=== PATIENT | female | born 1990 | race Caucasian/White ===

== ENCOUNTER 2017-07-05 08:00 | Outpatient (CLI) | payer BC, MEDICAID ==
[2017-07-05 18:40] LABS: BASOPHILS # (AUTO) 0.1 10^3/uL (0.0-0.1); BASOPHILS % (AUTO) 1.1 %; EOSINOPHILS # (AUTO) 0.1 10^3/uL (0.0-0.7); HGB - HEMOGLOBIN 14.3 g/dL (12.0-16.0); LYMPHOCYTES # (AUTO) 1.8 10^3/uL (1.5-3.5); LYMPHOCYTES % (AUTO) 36.6 %; MEAN CORPUSCULAR HEMOGLOBIN 28.5 pg (27.0-31.0); MEAN CORPUSCULAR HGB CONC 33.6 g/dL (32.0-36.0); MEAN CORPUSCULAR VOLUME 84.9 fL (81.0-99.0); MONOCYTES # (AUTO) 0.4 10^3/uL (0.0-1.0); MONOCYTES % (AUTO) 7.6 %; NEUTROPHILS # (AUTO) 2.6 10^3/uL (1.5-6.6); NEUTROPHILS % (AUTO) 52.7 %; PLT - PLATELET COUNT 241 10^3/uL (130-450); RED BLOOD COUNT 5.01 10^6/uL (4.20-5.40); WHITE BLOOD COUNT 4.9 x10^3/uL (4.8-10.8)
[2017-07-05 18:48] LABS: ALBUMIN 4.5 g/dL (3.2-5.5); ALBUMIN/GLOBULIN RATIO 1.4 (1.0-2.2); ALKALINE PHOSPHATASE 47 IU/L (42-121); ALT ALANINE AMINOTRANSFERASE 14 IU/L (10-60); AMYLASE 58 U/L (28-100); AST ASPARTATE AMINOTRANSFERASE 16 IU/L (10-42); BILIRUBIN,TOTAL 1.4 mg/dL (0.2-1.0); BUN - BLOOD UREA NITROGEN 8 mg/dL (6-20); CALCIUM 9.4 mg/dL (8.5-10.3); CARBON DIOXIDE - CO2 24 mmol/L (21-32); CHLORIDE 102 mmol/L (101-111); CREATININE 0.7 mg/dL (0.4-1.0); GFR - MDRD 100 (>89); GLUCOSE 84 mg/dL (70-100); LIPASE 16 U/L (22-51); SODIUM 138 mmol/L (135-145); TOTAL PROTEIN 7.7 g/dL (6.7-8.2)
== END 2017-07-05 08:01 | disposition home or self-care (01) ==
LOC: LAB.N 08:00
PROVIDERS: ATTEND Family Medicine
DX: R10.9 Unspecified abdominal pain (principal); K58.9 Irritable bowel syndrome, unspecified
CPT/HCPCS: 36415; 80053; 82150; 83690; 84443; 85025; 85651

== ENCOUNTER 2018-08-24 01:53 | Outpatient (CLI) | payer MEDICAID | END 2018-08-24 01:54 | disposition critical access hospital (66) | LOC: EMS 01:53 | PROVIDERS: ATTEND Surgery | DX: R55 Syncope and collapse (principal); S09.90XA Unspecified injury of head, initial encounter | CPT/HCPCS: A0425; A0429; A0999 ==

== ENCOUNTER 2018-08-24 02:23 | Emergency (ER) | payer MEDICAID ==
--- NOTE | 2018-08-24 02:59 | ED Physician Documentation ---
PD HPI SYNCOPE - Stated complaint Stated Complaint: SYNCOPE - Chief complaint Chief Complaint: Neuro - History obtained from History obtained from: Patient - History of Present Illness Witnessed: Witnessed Timing - onset: How many hours ago (approximately 1 hour [employer]) Duration: Minutes Preceding symptoms: Nausea / vomiting, Light headed, Generalized weakness Associated symptoms: Vision changes, Diaphoresis, None Contributing factors: Just stood up Injury occurred: None Pain level now: 0 Similar symptoms before: Has not had sx before Recently seen: Not recently seen - Additional information Additional information: felt nausea while lying in bed tonight, got up to use BR. while on toilet, became lightheaded, vomited, vision dimmed, diaphoresis, and syncope. recovered but then had second episode syncope. she presents c/o mild generalized weakness, nausea Review of Systems Constitutional: reports: Sweats. denies: Fever, Chills Cardiac: reports: Reviewed and negative Respiratory: reports: Reviewed and negative GI: reports: Nausea, Vomiting. denies: Abdominal Pain : denies: Dysuria, Frequency, Incontinent PD PAST MEDICAL HISTORY - Past Medical History Past Medical History: No - Past Surgical History Past Surgical History: No - Present Medications Home Medications: Ambulatory Orders Medication Instructions Recorded Confirmed Ondansetron Odt [Zofran] 4 mg TL Q6H PRN #10 tablet 08/24/18 - Allergies Allergies/Adverse Reactions: Allergies Allergy/AdvReac Type Severity Reaction Status Date / Time amoxicillin AdvReac Rash Verified 08/24/18 02:29 - Social History Does the pt smoke?: No Smoking Status: Never smoker Does the pt drink ETOH?: No Does the pt have substance abuse?: No - Immunizations Immunizations are current?: Yes - POLST Patient has POLST: No PD ED PE NORMAL - Vitals Vital signs reviewed: Yes - General General: Alert and oriented X 3, No acute distress, Well developed/nourished - HEENT HEENT: Moist mucous membranes - Cardiac Cardiac: RRR, No murmur, No gallop, No rub - Respiratory Respiratory: No respiratory distress, Clear bilaterally - Abdomen Abdomen: Soft, Non tender - Back Back: No CVA TTP - Extremities Extremities: No edema - Neuro Neuro: Alert and oriented X 3, 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, No motor deficit, No sensory deficit, Normal speech Results - Vitals Vitals: Oxygen O2 Source Room air - Labs Labs: Laboratory Tests 03/31/19 03/31/19 03:46 03:46 WBC 15.9 H RBC 4.45 Hgb 13.1 Hct 37.5 MCV 84.3 MCH 29.4 MCHC 34.9 RDW 12.3 Plt Count 233 MPV 7.6 L Neut # (Auto) 14.3 H Lymph # (Auto) 0.6 L [place] # (Auto) 0.8 Eos # (Auto) 0.0 Baso # (Auto) 0.1 Absolute Nucleated RBC 0.00 Nucleated RBC % 0.0 Sodium 137 Potassium 3.1 L Chloride 104 Carbon Dioxide 25 Anion Gap 8.0 BUN 9 Creatinine 0.6 Estimated GFR (MDRD) 119 Glucose 100 Calcium 8.6 Total Bilirubin 1.5 H AST 18 ALT 12 Alkaline Phosphatase 49 Total Protein 6.9 Albumin 4.3 Globulin 2.6 Albumin/Globulin Ratio 1.7 Lipase 27 PD MEDICAL DECISION MAKING - ED course Complexity details: reviewed results, re-evaluated patient, considered differential, d/w patient Departure - Departure Disposition: 01 Home, Self Care Clinical Impression: Syncope Condition: Good Instructions: ED Syncope Vasovagal Prescriptions: Ondansetron Odt [Zofran] 4 mg TL Q6H PRN #10 tablet PRN Reason: Nausea / Vomiting Forms: Activity restrictions Discharge Date/Time: 08/24/18 06:04
[2018-08-24] MEDS ORDERED: SODIUM CHLORIDE 0.9% 1,000 ML IV STA (03:18)
[2018-08-24 03:52] LABS: BASOPHILS # (AUTO) 0.1 10^3/uL (0.0-0.1); BASOPHILS % (AUTO) 0.6 %; EOSINOPHILS % (AUTO) 0.2 %; HGB - HEMOGLOBIN 13.1 g/dL (12.0-16.0); LYMPHOCYTES # (AUTO) 0.6 10^3/uL (1.5-3.5); MEAN CORPUSCULAR HEMOGLOBIN 29.4 pg (27.0-31.0); MEAN CORPUSCULAR HGB CONC 34.9 g/dL (32.0-36.0); MEAN CORPUSCULAR VOLUME 84.3 fL (81.0-99.0); MEAN PLATELET VOLUME 7.6 fL (7.9-10.8); MONOCYTES # (AUTO) 0.8 10^3/uL (0.0-1.0); MONOCYTES % (AUTO) 5.2 %; NEUTROPHILS # (AUTO) 14.3 10^3/uL (1.5-6.6); PLT - PLATELET COUNT 233 10^3/uL (130-450); RED BLOOD COUNT 4.45 10^6/uL (4.20-5.40); RED CELL DISTRIBUTION WIDTH 12.3 % (12.0-15.0); WHITE BLOOD COUNT 15.9 x10^3/uL (4.8-10.8)
[2018-08-24 04:03] LABS: ALBUMIN 4.3 g/dL (3.2-5.5); ALBUMIN/GLOBULIN RATIO 1.7 (1.0-2.2); BILIRUBIN,TOTAL 1.5 mg/dL (0.2-1.0); CALCIUM 8.6 mg/dL (8.5-10.3); CREATININE 0.6 mg/dL (0.4-1.0); TOTAL PROTEIN 6.9 g/dL (6.7-8.2)
[2018-08-24 05:43] VITALS: BP 98/62
[2018-08-24] MEDS ORDERED: ONDANSETRON ODT 4 MG TABLET TL STA (05:45)
[2018-08-24] MEDS ORDERED: POTASSIUM BICARB 25 MEQ TABLET PO STA (05:49)
== END 2018-08-24 06:04 | disposition home or self-care (01) ==
LOC: EDUNIT# → ED 02:23
DX: R55 Syncope and collapse (principal); R11.2 Nausea with vomiting, unspecified
CPT/HCPCS: 36415; 80053; 83690; 85025; 96360; 99283; 99284; A9270; Q0162

== ENCOUNTER 2018-09-05 08:00 | Outpatient (CLI) | payer MEDICAID ==
[2018-09-05 18:57] LABS: CALCIUM 9.1 mg/dL (8.5-10.3); CREATININE 0.6 mg/dL (0.4-1.0)
== END 2018-09-05 23:59 | disposition home or self-care (01) ==
LOC: LAB.N 08:00
PROVIDERS: ATTEND Nurse Practitioner
DX: E87.6 Hypokalemia (principal)
CPT/HCPCS: 36415; 80048

== ENCOUNTER 2019-02-13 10:51 | Outpatient (CLI) | payer MEDICAID ==
--- NOTE | 2019-02-13 14:17 | Ultrasound Report ---
Reason: LT BREAST PAIN Procedure Date: 02/13/2019 Accession Number: [id number] / [id number] Procedure: US - Breast Unilateral Limited CPT Code: FULL RESULT: EXAM: Breast Unilateral Limited DATE: 02/13/2019 11:47 AM CLINICAL HISTORY: LT BREAST PAIN COMPARISON: None. TECHNIQUE: Targeted ultrasound was performed of the inferior left breast in the area of clinical pain 5-7 o'clock. Color Doppler was employed as appropriate. FINDINGS: No cystic or solid mass, abnormal fluid collection, distortion of fat planes, or other abnormality. IMPRESSION: Negative left breast ultrasound. RECOMMENDATION: Clinical follow-up of breast pain BIRADS CATEGORY 1: Negative RADIA
== END 2019-02-13 10:52 | disposition home or self-care (01) ==
LOC: DI 10:51
PROVIDERS: ATTEND Physician Assistant Medical
DX: N64.4 Mastodynia (principal)
CPT/HCPCS: 76642

== ENCOUNTER 2022-04-29 04:46 | Emergency (ER) | payer MEDICAID, OTHER ==
--- NOTE | 2022-04-29 05:12 | ED Physician Documentation ---
PD HPI HEENT - Stated complaint Stated Complaint: SEVERE L EAR PX - Chief complaint Chief Complaint: Heent - History obtained from History obtained from: Patient - Additional information Additional information: Patient is a 32-year-old female with no significant past medical history presenting for evaluation of left ear pain this been present since noon yesterday. Earlier in the week patient had URI symptoms. She was starting to feel better up until yesterday when her left ear started hurting. It feels like a lot of pressure. At times it causes her to feel like she is off balance. She denies feeling congested or having a cough. Denies fever. She has tried Mucinex without any improvement.She denies any known sick contacts. Review of Systems Constitutional: denies: Fever Ears: reports: Ear pain. denies: Drainage/discharge Nose: denies: Congestion Cardiac: denies: Chest pain / pressure Respiratory: denies: Dyspnea GI: denies: Abdominal Pain Neurologic: denies: Headache PD PAST MEDICAL HISTORY - Past Medical History Past Medical History: No - Past Surgical History Past Surgical History: No - Present Medications Home Medications: Ambulatory Orders Medication Instructions Recorded Confirmed Cefuroxime Axetil [Cefuroxime] 500 mg PO BID 10 Days #20 tablet 04/29/22 - Allergies Allergies/Adverse Reactions: Allergies Allergy/AdvReac Type Severity Reaction Status Date / Time amoxicillin AdvReac Rash Verified 04/29/22 04:53 - Social History Does the pt smoke?: No Smoking Status: Never smoker Does the pt drink ETOH?: No Does the pt have substance abuse?: No - Immunizations Immunizations are current?: Yes - POLST Patient has POLST: No PD ED PE NORMAL - General General: Alert and oriented X 3, No acute distress, Well developed/nourished - HEENT HEENT: Atraumatic, Moist mucous membranes, Pharynx benign, Other (Left TM: erythematous/Effusion present; Right TM is clear). No: Ears normal - Neck Neck: Supple, no meningeal sign - Cardiac Cardiac: RRR, No murmur - Respiratory Respiratory: No respiratory distress, Clear bilaterally - Derm Derm: Warm and dry - Neuro Neuro: Normal speech Results - Vitals Vitals: Vital Signs - 24 hr 04/29/22 04:50 Temperature 36.7 C Heart Rate 82 Respiratory 16 Rate Blood Pressure 132/75 H O2 Saturation 100 Oxygen O2 Source Room air PD MEDICAL DECISION MAKING - ED course ED course: Patient presenting for evaluation of left ear pain. Appears to have acute otitis media on exam. She is otherwise well-appearing, nontoxic. DiscussedPossible etiologies of ear infections. Patient agreeable to antibiotic treatment. Counseled on concerning symptoms to return for. Departure - Departure Disposition: 01 Home, Self Care Clinical Impression: Left otitis media Condition: Stable Instructions: ED Otitis Media Acute Adult Prescriptions: Cefuroxime Axetil [Cefuroxime] 500 mg PO BID 10 Days #20 tablet Comments: You have an ear infection in your left ear. I have sent a prescription for antibiotics to [facility] in [place]. Please make sure to complete the whole course of the antibiotic. I would also recommend using anti-inflammatories such as acetaminophen or ibuprofen And making sure you stay hydrated.
[2022-04-29 05:31] VITALS: BP 113/71
== END 2022-04-29 05:15 | disposition home or self-care (01) ==
LOC: ED 04:46
DX: H66.92 Otitis media, unspecified, left ear (principal)
CPT/HCPCS: 99282; 99284; A9270